=== PATIENT | male | born 1965 | race Caucasian/White ===

== ENCOUNTER 2016-06-29 17:39 | Emergency (ER) | payer OTHER ==
[2016-06-29] MEDS ORDERED: HYDROmorphone 1 MG/ML SYRINGE IM STA (18:36)
[2016-06-29] MEDS ORDERED: oxyCOD/ACETAMIN 5 MG/325 MG TABLET PO STA (18:36)
[2016-06-29] MEDS ORDERED: KETOROLAC 60 MG/2 ML VIAL IM STA (18:37)
[2016-06-29] MEDS ORDERED: HYDROmorphone 1 MG/ML SYRINGE ONE (18:46)
[2016-06-29] MEDS ORDERED: oxyCOD/ACETAMIN 5 MG/325 MG TABLET PO ONE (18:46)
[2016-06-29] MEDS ORDERED: KETOROLAC 60 MG/2 ML VIAL ONE (18:46)
== END 2016-06-29 20:23 | disposition home or self-care (01) ==
DX: M54.6 Pain in thoracic spine (principal); M54.2 Cervicalgia
CPT/HCPCS: 96372; 99283; A9270; J1170

== ENCOUNTER 2016-07-15 20:41 | Outpatient (CLI) | payer OTHER | END 2016-07-15 20:42 | disposition home or self-care (01) | DX: Z79.899 Other long term (current) drug therapy (principal); R74.8 Abnormal levels of other serum enzymes ==

== ENCOUNTER 2016-08-10 15:40 | Outpatient (CLI) | payer OTHER | END 2016-08-10 15:41 | disposition home or self-care (01) | DX: R74.8 Abnormal levels of other serum enzymes (principal) ==

== ENCOUNTER 2016-09-07 08:00 | Outpatient (CLI) | payer OTHER | END 2016-09-07 23:59 | DX: R74.8 Abnormal levels of other serum enzymes (principal) ==

== ENCOUNTER 2016-11-03 10:51 | Outpatient (CLI) | payer OTHER ==
[2016-11-03 19:12] LABS: BILIRUBIN,DIRECT 0.3 mg/dL (0.1-0.5); BILIRUBIN,TOTAL 0.8 mg/dL (0.2-1.0); TOTAL PROTEIN 7.6 g/dL (6.7-8.2)
== END 2016-11-03 10:52 | disposition home or self-care (01) ==
LOC: LAB.WCP 10:51
PROVIDERS: ATTEND Physician Assistant Medical
DX: R74.8 Abnormal levels of other serum enzymes (principal)
CPT/HCPCS: 36415; 80076

== ENCOUNTER 2016-12-10 09:31 | Outpatient (CLI) | payer OTHER ==
[2016-12-10 13:36] LABS: BILIRUBIN,URINE NEGATIVE (NEGATIVE); PH,URINE 6.5 PH (5.0-7.5)
[2016-12-10 13:43] LABS: BASOPHILS # (AUTO) 0.1 10^3/uL (0.0-0.1); BASOPHILS % (AUTO) 1.1 %; EOSINOPHILS # (AUTO) 0.2 10^3/uL (0.0-0.7); EOSINOPHILS % (AUTO) 3.5 %; HCT - HEMATOCRIT 39.3 % (42.0-52.0); HGB - HEMOGLOBIN 13.2 g/dL (14.0-18.0); LYMPHOCYTES # (AUTO) 1.9 10^3/uL (1.5-3.5); LYMPHOCYTES % (AUTO) 34.1 %; MEAN CORPUSCULAR HEMOGLOBIN 27.8 pg (27.0-31.0); MEAN CORPUSCULAR HGB CONC 33.7 g/dL (32.0-36.0); MEAN CORPUSCULAR VOLUME 82.8 fL (80.0-94.0); MEAN PLATELET VOLUME 9.6 fL (7.4-11.4); MONOCYTES # (AUTO) 0.3 10^3/uL (0.0-1.0); MONOCYTES % (AUTO) 5.1 %; NEUTROPHILS # (AUTO) 3.1 10^3/uL (1.5-6.6); NEUTROPHILS % (AUTO) 56.2 %; RED BLOOD COUNT 4.74 10^6/uL (4.70-6.10); RED CELL DISTRIBUTION WIDTH 14.8 % (12.0-15.0); UNCORRECTED WHITE BLOOD COUNT 5.6 x10^3/uL; WHITE BLOOD COUNT 5.6 x10^3/uL (4.8-10.8)
[2016-12-10 14:01] LABS: ALBUMIN/GLOBULIN RATIO 1.1 (1.0-2.2); BILIRUBIN,TOTAL 0.9 mg/dL (0.2-1.0); CALCIUM 9.1 mg/dL (8.5-10.3); POTASSIUM 4.3 mmol/L (3.5-5.0); TOTAL PROTEIN 7.5 g/dL (6.7-8.2)
[2016-12-10 14:12] LABS: WBC,URINE 0-3 /HPF (0-3)
[2016-12-10 14:13] LABS: UR CULTURE IF IND NOT INDICATED
[2016-12-13 17:26] LABS: TEST RESULT REPORT (())
== END 2016-12-10 09:32 | disposition home or self-care (01) ==
LOC: LAB.WCP 09:31
PROVIDERS: ATTEND Physician Assistant Medical
DX: Z52.4 Kidney donor (principal); R74.8 Abnormal levels of other serum enzymes; F32.9 Major depressive disorder, single episode, unspecified; Z79.899 Other long term (current) drug therapy; Z12.5 Encounter for screening for malignant neoplasm of prostate
CPT/HCPCS: 36415; 80053; 81001; 81599; 82043; 82570; 83540; 84153; 84443; 84466; 85025; 86317; 86704; 86709; 86803; 87086; 87340

== ENCOUNTER 2016-12-18 06:45 | Outpatient (CLI) | payer OTHER ==
[2016-12-18] MEDS ORDERED: IOPAMIDOL-300 100 ML VIAL IVP ONE (08:11)
--- NOTE | 2016-12-19 15:46 | CT Report ---
EXAM: CT ABDOMEN AND PELVIS WITH CONTRAST EXAM DATE: 12/18/2016 08:13 AM. CLINICAL HISTORY: Abdominal and pelvic swelling. Query mass or lump. COMPARISONS: Noncontrast abdomen and pelvic CT scan performed on 04/04/2008. TECHNIQUE: Routine helical CT imaging was performed through the abdomen and pelvis. IV contrast: 100 mL Omnipaque 300. Enteric contrast: Yes. Reconstructions: Coronal and sagittal. In accordance with CT protocol optimization, one or more of the following dose reduction techniques w ere utilized for this exam: automated exposure control, adjustment of mA and/or KV based on patient s ize, or use of iterative reconstructive technique. FINDINGS: Lung Bases: Small hiatus hernia, as noted previously. Otherwise unremarkable. Liver: Normal size and contour without mass or cyst. Gallbladder/Bile Ducts: Gallbladder surgically absent with moderate intrahepatic and extrahepatic sally e duct dilatation, new from prior study. Previous study showed distended gallbladder with multiple ga llstones, prior to surgical intervention. Spleen: Normal. Pancreas: Normal. Adrenal Glands: Normal. Kidneys: Right kidney unremarkable without mass, cyst, nephrolithiasis or hydronephrosis. Interval left nephrectomy. No abnormality in the left renal bed. Peritoneal Cavity/Bowel: Normal. No free fluid, free air or adenopathy. No masses or acute inflammato ry process. Appendix is not demonstrated and may be surgically absent. No secondary signs of appendic itis. Terminal ileum unremarkable. Pelvic Organs: Normal. The bladder and visualized pelvic organs are within normal limits. Vasculature: No aneurysms or other significant abnormality. Bones: Deformity of the upper sacrum with 15 mm anterolisthesis of what appears to be L5 on S1 are po ssibly S1 on S2 with fusion of the disk spaces, chronic in appearance. No acute process or metastatic disease. Other: Small abdominal wall fat hernia centered to the left of midline, above the level of the umbili cus approximately 5 cm in area of prior abdominal wall metallic device with catheter in abdomen and p destin, no longer present. The abdominal wall defect is 2.8 cm in transverse diameter by 1.9 cm in unmanned aircraft systems roboticist niocaudad dimension with the area of protruded fat report 2 cm in maximum diameter. No bowel involvem ent. IMPRESSION: Small abdominal wall fat hernia, without bowel involvement, an area of prior abdominal wa ll device placement, removed since prior study. Interval cholecystectomy since prior examination with moderate intrahepatic and extra hepatic bile du ct dilatation. No evident choledocholithiasis. Interval left nephrectomy since prior exam, without abnormality in the left renal bed. Chronic grade 2 anterolisthesis at what appears to be L5-S1 with disk fusion, likely also present pre viously, but not as well delineated secondary to lack of reconstructions on prior exam. [facility] Referring Provider Line: [phone] SITE ID: [id number]
== END 2016-12-18 06:46 | disposition home or self-care (01) ==
LOC: DI 06:45
PROVIDERS: ATTEND Physician Assistant Medical
DX: K43.9 Ventral hernia without obstruction or gangrene (principal); M43.17 Spondylolisthesis, lumbosacral region; Z52.4 Kidney donor; Z90.49 Acquired absence of other specified parts of digestive tract
CPT/HCPCS: 74177; Q9967

== ENCOUNTER 2017-01-27 14:43 | Outpatient (CLI) | payer OTHER ==
[2017-01-27 19:44] LABS: ALBUMIN/GLOBULIN RATIO 1.1 (1.0-2.2); BILIRUBIN,TOTAL 0.6 mg/dL (0.2-1.0); CALCIUM 9.3 mg/dL (8.5-10.3); CREATININE 1.1 mg/dL (0.6-1.2); POTASSIUM 4.2 mmol/L (3.5-5.0); TOTAL PROTEIN 7.5 g/dL (6.7-8.2)
== END 2017-01-27 14:44 | disposition home or self-care (01) ==
LOC: LAB.WCP 14:43
PROVIDERS: ATTEND Physician Assistant Medical
DX: R74.8 Abnormal levels of other serum enzymes (principal); Z51.81 Encounter for therapeutic drug level monitoring; Z79.899 Other long term (current) drug therapy
CPT/HCPCS: 36415; 80053

== ENCOUNTER 2017-01-28 08:00 | Outpatient (CLI) | payer OTHER ==
[2017-01-28 19:46] LABS: ALBUMIN/GLOBULIN RATIO 1.2 (1.0-2.2); BILIRUBIN,TOTAL 0.4 mg/dL (0.2-1.0); CALCIUM 8.7 mg/dL (8.5-10.3); POTASSIUM 4.3 mmol/L (3.5-5.0)
[2017-01-28 19:49] LABS: CHOL/HDL RATIO 2.5 (<5.0); CHOLESTEROL 175 mg/dL; HDL CHOLESTEROL 71 mg/dL; TRIGLYCERIDES 148 mg/dL; VLDL CHOLESTEROL 30 mg/dL
[2017-01-28 20:36] LABS: BASOPHILS # (AUTO) 0.1 10^3/uL (0.0-0.1); BASOPHILS % (AUTO) 1.5 %; EOSINOPHILS # (AUTO) 0.2 10^3/uL (0.0-0.7); EOSINOPHILS % (AUTO) 2.4 %; HCT - HEMATOCRIT 40.3 % (42.0-52.0); HGB - HEMOGLOBIN 13.4 g/dL (14.0-18.0); LYMPHOCYTES # (AUTO) 2.3 10^3/uL (1.5-3.5); LYMPHOCYTES % (AUTO) 30.8 %; MEAN CORPUSCULAR HEMOGLOBIN 28.2 pg (27.0-31.0); MEAN CORPUSCULAR HGB CONC 33.2 g/dL (32.0-36.0); MEAN CORPUSCULAR VOLUME 84.9 fL (80.0-94.0); MEAN PLATELET VOLUME 10.4 fL (7.4-11.4); MONOCYTES # (AUTO) 0.5 10^3/uL (0.0-1.0); MONOCYTES % (AUTO) 6.7 %; NEUTROPHILS # (AUTO) 4.4 10^3/uL (1.5-6.6); NEUTROPHILS % (AUTO) 58.6 %; NUCLEATED RED BLOOD CELLS AUTO 0.2 /100WBC; RED BLOOD COUNT 4.75 10^6/uL (4.70-6.10); RED CELL DISTRIBUTION WIDTH 15.8 % (12.0-15.0); UNCORRECTED WHITE BLOOD COUNT 7.5 x10^3/uL; WHITE BLOOD COUNT 7.5 x10^3/uL (4.8-10.8)
[2017-01-30 22:06] LABS: TEST RESULT REPORT (())
[2017-01-31 13:51] LABS: ANA SCREEN NEGATIVE (NEGATIVE)
[2017-01-31 14:00] LABS: TEST RESULT REPORT (())
[2017-02-01 21:11] LABS: TEST RESULT REPORT (())
[2017-02-02 12:36] LABS: TEST RESULT REPORT (())
== END 2017-01-28 08:01 | disposition home or self-care (01) ==
LOC: LAB.N 08:00
PROVIDERS: ATTEND Physician Assistant Medical
DX: R74.8 Abnormal levels of other serum enzymes (principal)
CPT/HCPCS: 36415; 80053; 80061; 80320; 81599; 82390; 82785; 83516; 85025; 85610; 86038

== ENCOUNTER 2017-01-28 09:52 | Outpatient (CLI) | payer OTHER ==
--- NOTE | 2017-01-28 11:02 | Ultrasound Report ---
RIGHT UPPER QUADRANT ULTRASOUND: 01/28/2017 CLINICAL INDICATION: Abnormal LFTs. COMPARISON: CT 12/18/2016. TECHNIQUE: Real-time scanning was performed with junior sales representative static images obtained. FINDINGS: The liver measures 15.4 cm. Hepatic echotexture is mildly echogenic, suggestive of fatty infiltration. No focal parenchymal mass is identified. The patient is status post cholecystectomy. The common bile duct measures 9 mm, normal for a post-cholecystectomy patient. The right kidney giselle sures 11.7 cm, and demonstrates no hydronephrosis. No free fluid is seen. IMPRESSION: CHANGES OF CHOLECYSTECTOMY. LIKELY MILD FATTY INFILTRATION OF THE LIVER. NORMAL CALIBE R OF THE COMMON BILE DUCT FOR A POST-CHOLECYSTECTOMY PATIENT. JOB #: [id number] EXT JOB #:[id number]
== END 2017-01-28 09:53 | disposition home or self-care (01) ==
LOC: DI 09:52
PROVIDERS: ATTEND Physician Assistant Medical
DX: R74.8 Abnormal levels of other serum enzymes (principal); Z90.49 Acquired absence of other specified parts of digestive tract
CPT/HCPCS: 36415; 76705; 80053; 80061; 80320; 81599; 82390; 82785; 83516; 85025; 85610; 86038

== ENCOUNTER 2017-03-04 07:20 | Day surgery (SDC) | payer OTHER ==
[2017-03-04] MEDS ORDERED: LACTATED RINGERS 1,000 ML IV ONE (07:26)
[2017-03-04] MEDS ORDERED: PROPOFOL 200 MG/20 ML VIAL IVP ONE (09:00)
[2017-03-04] MEDS ORDERED: LIDOCAINE-MPF 2% 5 ML VIAL IM ONE (09:00)
[2017-03-04 09:43] VITALS: BP 106/67
== END 2017-03-04 07:21 | disposition home or self-care (01) ==
LOC: SDS 07:20
PROVIDERS: ATTEND Surgery
PROC: 0DJD8ZZ Inspection of Lower Intestinal Tract, Via Natural or Artificial Opening Endoscopic (ICD-10-PCS; principal; 2017-03-04 08:15)
DX: Z12.11 Encounter for screening for malignant neoplasm of colon (principal); K57.30 Diverticulosis of large intestine without perforation or abscess without bleeding; Z83.71 Family history of colonic polyps
CPT/HCPCS: 45378; J7120

== ENCOUNTER 2017-04-05 08:00 | Outpatient (CLI) | payer OTHER ==
[2017-04-05 19:25] LABS: ALBUMIN/GLOBULIN RATIO 1.1 (1.0-2.2); BILIRUBIN,TOTAL 0.7 mg/dL (0.2-1.0); CREATININE 0.9 mg/dL (0.6-1.2); POTASSIUM 4.3 mmol/L (3.5-5.0); TOTAL PROTEIN 7.5 g/dL (6.7-8.2)
== END 2017-04-05 08:01 | disposition home or self-care (01) ==
LOC: LAB.WCP 08:00
PROVIDERS: ATTEND Physician Assistant Medical
DX: R74.8 Abnormal levels of other serum enzymes (principal); Z51.81 Encounter for therapeutic drug level monitoring; Z79.899 Other long term (current) drug therapy
CPT/HCPCS: 36415; 80053